=== PATIENT | male | born 1970 | race Caucasian/White ===

== ENCOUNTER 2022-12-14 10:51 | Emergency (ER) | payer OTHER, SELFPAY ==
[2022-12-14 11:28] VITALS: BP 152/87; PULSE 82; RESP 18; TEMP 36.4; O2SAT 96; BMI 33.9
--- NOTE | 2022-12-14 11:30 | ED.GENADULT ---
HPI - General Adult General Chief complaint: Back Pain/Injury <Myron Hopkins - Last Filed: 12/14/22 11:32> Stated complaint: lower back pain <Myron Hopkins - Last Filed: 12/14/22 11:32> Time Seen by Provider: 12/14/22 11:57 <Myron Hopkins - Last Filed: 12/14/22 11:32> Source: patient <ANU Munguia - Last Filed: 12/14/22 13:17> Mode of arrival: ambulatory <ANU Munguia - Last Filed: 12/14/22 13:17> Limitations: no limitations <ANU Munguia - Last Filed: 12/14/22 13:17> History of Present Illness HPI narrative: Patient is a 52 year old assigned male at with a history of lumbar disc disease presenting to the emergency department today with low back pain. Patient states that 2 weeks ago he was working on some cars and is still having low back pain that radiates down his legs. Patient denies any dizziness, lightheadedness, abdominal pain, nausea, vomiting, fever, chills, blurry vision, double vision, loss of vision, chest pain, difficulty breathing, shortness of breath, night sweats, pain with urination, increased urinary frequency, increased urinary urgency, blood in his urine or stool, syncope or a near syncopal episode, recent trauma or falls, bowel incontinence, bladder incontinence, bowel retention, bladder retention, or any other complaints at this time. <ANU Munguia - Last Filed: 12/14/22 13:17> Onset (ago): week(s) (2) <ANU Munguia - Last Filed: 12/14/22 13:17> Location: back <ANU Munguia - Last Filed: 12/14/22 13:17> Radiation: extremity <ANU Munguia - Last Filed: 12/14/22 13:17> Severity: mild <ANU Munguia - Last Filed: 12/14/22 13:17> Severity scale (1-10): 4 <ANU Munguia - Last Filed: 12/14/22 13:17> Relieving factors: none <ANU Munguia - Last Filed: 12/14/22 13:17> Exacerbating factors: none <ANU Munguia - Last Filed: 12/14/22 13:17> Associated symptoms: denies other symptoms <ANU Munguia - Last Filed: 12/14/22 13:17> Treatments prior to arrival: none <ANU Munguia - Last Filed: 12/14/22 13:17> Related Data Home medications: Previous Rx's Medication Instructions Recorded cyclobenzaprine 5 mg tablet 5 mg PO TID PRN low back pain 7 12/14/22 days #21 tabs prednisone 20 mg tablet 20 mg PO DAILY 7 days #7 tabs 12/14/22 <Myron Hopkins - Last Filed: 12/14/22 11:32> Allergies/adverse reactions: Allergies Allergy/AdvReac Type Severity Reaction Status Date / Time No Known Allergies Allergy Verified 12/14/22 11:28 <Myron Hopkins - Last Filed: 12/14/22 11:32> Review of Systems Constitutional: Constitutional: Reports no additional constitutional complaints, Denies chills, Denies fever(s) and Denies night sweats <ANU Munguia - Last Filed: 12/14/22 13:17> Eyes: Eyes: Reports no additional eye complaints, Denies blurry vision, Denies change in vision, Denies diplopia, Denies eye discharge, Denies loss of vision and Denies eye pain <ANU Munguia - Last Filed: 12/14/22 13:17> ENT: Denies dizziness <ANU Munguia - Last Filed: 12/14/22 13:17> Cardiovascular: Cardiovascular: Reports no additional cardiovascular complaints, Denies chest pain, Denies lightheadedness, Denies Loss of Consciousness and Denies dyspnea <ANU Munguia - Last Filed: 12/14/22 13:17> Respiratory: Respiratory: Reports no additional respiratory complaints and Denies dyspnea <ANU Munguia - Last Filed: 12/14/22 13:17> Gastrointestinal: Gastrointestinal: Reports no additional gastrointestinal complaints, Denies abdominal pain, Denies melena, Denies hematochezia, Denies change in bowel habits and Denies change in stool character <ANU Munguia - Last Filed: 12/14/22 13:17> Genitourinary: Genitourinary: Reports no additional male genitourinary complaints, Denies hematuria, Denies oliguria, Denies difficulty urinating, Denies dysuria, Denies urinary frequency, Denies urinary hesitancy, Denies urinary incontinence and Denies urinary urgency <ANU Munguia - Last Filed: 12/14/22 13:17> Musculoskeletal: Musculoskeletal: Reports no additional musculoskeletal complaints, Reports back pain, Denies numbness and Denies tingling <ANU Munguia - Last Filed: 12/14/22 13:17> Neurologic: Denies dizziness, Denies loss of vision, Denies numbness and Denies tingling <ANU Munguia - Last Filed: 12/14/22 13:17> Psychiatric: Psychiatric: Reports no additional psychiatric complaints <ANU Munguia - Last Filed: 12/14/22 13:17> Endocrine: Endocrine: Reports no additional endocrine complaints <ANU Munguia - Last Filed: 12/14/22 13:17> Hematologic/Lymphatic: Hematologic/Lymphatic: Reports no additional hematologic/lymphatic complaints <ANU Munguia - Last Filed: 12/14/22 13:17> Allergic/Immunologic: Allergic/Immunologic: Reports no additional allergic/immunologic complaints <ANU Munguia - Last Filed: 12/14/22 13:17> [facility] Past Medical History Attestation statement: The following information was validated with the patient. <ANU Munguia - Last Filed: 12/14/22 13:17> Source: old records reviewed and nursing notes reviewed <ANU Munguia - Last Filed: 12/14/22 13:17> Social History Social History: Social History Advance Directives: No Advance Directives Information Provided: Yes <Myron Hopkins - Last Filed: 12/14/22 11:32> Physical Exam ED Vital Signs: Vital Signs - 24 hr 12/14/22 11:28 Temperature 97.5 F Pulse Rate 82 Respiratory Rate 18 Blood Pressure 152/87 H Pulse Oximetry 96 Oxygen Delivery Method Room Air BMI result Body Mass Index 33.9 <Myron Oliviery - Last Filed: 12/14/22 11:32> Vital Signs - 24 hr 12/14/22 11:28 Temperature 97.5 F Pulse Rate 82 Respiratory Rate 18 Blood Pressure 152/87 H Pulse Oximetry 96 Oxygen Delivery Method Room Air BMI result Body Mass Index 33.9 <ANU Munguia - Last Filed: 12/14/22 13:17> Const General: cooperative, no acute distress, alert and awake <ANU Munguia - Last Filed: 12/14/22 13:17> Nutritional Appearance: well nourished <ANU Munguia - Last Filed: 12/14/22 13:17> Orientation/consciousness: patient oriented x3 <ANU Munguia - Last Filed: 12/14/22 13:17> Limitations: no limitations <ANU Munguia - Last Filed: 12/14/22 13:17> HENMT Head: Yes normal to inspection and Yes atraumatic <AUN Munguia - Last Filed: 12/14/22 13:17> Ears: hearing grossly normal bilaterally and external ears normal <ANU Munguia - Last Filed: 12/14/22 13:17> General nose exam: Normal external nose present, no nasal discharge noted and no epistaxis <ANU Munguia - Last Filed: 12/14/22 13:17> Face and sinus: Yes normal facial exam, No abrasion and No laceration <ANU Munguia - Last Filed: 12/14/22 13:17> Mouth: Normal oral and palatal mucosa present, no drooling and no muffled voice <ANU Munugia - Last Filed: 12/14/22 13:17> Eyes General: appearance normal, both eyes and all related structures <ANU Munguia - Last Filed: 12/14/22 13:17> Periorbital: periorbital findings normal <ANU Munguia - Last Filed: 12/14/22 13:17> Eyelids: Yes eyelids normal <ANU Munguia - Last Filed: 12/14/22 13:17> Conjunctivae: conjunctivae normal <ANU Munguia - Last Filed: 12/14/22 13:17> Pupils: Equal, round and reactive pupils present <Alejandra Rodriguez [place] - Last Filed: 12/14/22 13:17> EOM: EOMs intact bilaterally <Alejandra Rodriguez [place] - Last Filed: 12/14/22 13:17> Neck Neck: Yes normal visual inspection, Yes full ROM and Yes no lymphadenopathy <Alejandra Rodriguez [place] - Last Filed: 12/14/22 13:17> Chest Chest palpation & inspection: normal inspection of the chest <Alejandra Rodriguez [place] - Last Filed: 12/14/22 13:17> Resp Effort & Inspection: normal respiratory effort and able to speak in complete sentences <Alejandra Rodriguez [place] - Last Filed: 12/14/22 13:17> Auscultation: clear to auscultation bilaterally <Alejandra Rodriguez [place] - Last Filed: 12/14/22 13:17> Cardio Rate: regular rate <Alejandra Rodriguez [place] - Last Filed: 12/14/22 13:17> Rhythm: regular rhythm <Alejandra Rodriguez [place] - Last Filed: 12/14/22 13:17> GI Inspection: Yes normal to inspection <Alejandra Rodriguez [place] - Last Filed: 12/14/22 13:17> Palpation (GI): Soft to palpation, not firm, nontender, no guarding and not rigid <Alejandra Rodriguez [place] - Last Filed: 12/14/22 13:17> General: Yes no CVA tenderness <Alejandra Rodriguez [place] - Last Filed: 12/14/22 13:17> Back/Spine/Pelvis Back: no CVA tenderness <Alejandra Rodriguez [place] - Last Filed: 12/14/22 13:17> Cervical Spine: normal cervical lordosis <Alejandra Rodriguez [place] - Last Filed: 12/14/22 13:17> Thoracic/Lumbar Spine: thoracic and lumbar spine normal to inspection <Alejandra Rodriguez [place] - Last Filed: 12/14/22 13:17> Pelvis: no pain with anterior-posterior compression <Alejandra Rodriguez [place] - Last Filed: 12/14/22 13:17> Neuro General: patient oriented x3 and moves all extremities <Alejandra Solomonjose [place] - Last Filed: 12/14/22 13:17> Cranial nerves: Yes Equal, round and reactive pupils present <Alejandramagdalena SolomonANU garcia - Last Filed: 12/14/22 13:17> Cognition (Neuro): normal cognition <Alejandra SolomonANU garcia - Last Filed: 12/14/22 13:17> Motor exam (neuro): 5/5 motor strength present throughout <Alejandra SolomonANU garcia - Last Filed: 12/14/22 13:17> Sensory Exam: Normal double simultaneous stimulation for sensation <ANU Munguia - Last Filed: 12/14/22 13:17> Coordination: [id number] test normal <Alejandramagdalena SolomonANU garcia - Last Filed: 12/14/22 13:17> Extrem General: Yes normal to inspection, Yes full ROM and Yes capillary refill normal <Alejandramagdalena SolomonANU garcia - Last Filed: 12/14/22 13:17> Psych Appearance: grossly normal <ANU Munguia - Last Filed: 12/14/22 13:17> Mental Status: mental status grossly normal <ANU Munguia - Last Filed: 12/14/22 13:17> Affect: normal affect <ANU Munguia - Last Filed: 12/14/22 13:17> Attitude: cooperative <ANU Munguia - Last Filed: 12/14/22 13:17> Thought process: Normal thought process present <ANU Munguia - Last Filed: 12/14/22 13:17> Thought content: Normal thought content present <ANU Munguia - Last Filed: 12/14/22 13:17> Insight: Good insight present (Psych) <ANU Munguia - Last Filed: 12/14/22 13:17> Course Course Course Narrative: RME- 52 yo male presents for evaluation of lower back pain that started about 2 weeks ago. He believes he injured himself while working on a car. His pain is getting worse and radiating down his right leg. Denies any numbness, tingling, saddle paresthesia, weakness or bladder or bowel incontinence. <Myron Hopkins - Last Filed: 12/14/22 11:32> Medications Administered Discontinued Medications Generic Name Dose Route Start Last Admin Trade Name Freq PRN Reason Stop Dose Admin Cyclobenzaprine HCl 5 mg 12/14/22 11:59 12/14/22 12:14 Cyclobenzaprine Hcl 5 Mg Tablet PO 12/14/22 12:00 5 mg ONCE ONE Administration Ketorolac Tromethamine 15 mg 12/14/22 11:59 12/14/22 12:16 Ketorolac Tromethamine 15 Mg/Ml Vial IM 12/14/22 12:00 15 mg ONCE ONE Administration Methylprednisolone Sodium Succinate 60 mg 12/14/22 11:59 12/14/22 12:17 Methylprednisolone Sod Succ 125 Mg/2 Ml Vial IM 12/14/22 12:00 60 mg ONCE ONE Administration <Myron Hopkins - Last Filed: 12/14/22 11:32> Medications Administered Discontinued Medications Generic Name Dose Route Start Last Admin Trade Name Bindu PRN Reason Stop Dose Admin Cyclobenzaprine HCl 5 mg 12/14/22 11:59 12/14/22 12:14 Cyclobenzaprine Hcl 5 Mg Tablet PO 12/14/22 12:00 5 mg ONCE ONE Administration Ketorolac Tromethamine 15 mg 12/14/22 11:59 12/14/22 12:16 Ketorolac Tromethamine 15 Mg/Ml Vial IM 12/14/22 12:00 15 mg ONCE ONE Administration Methylprednisolone Sodium Succinate 60 mg 12/14/22 11:59 12/14/22 12:17 Methylprednisolone Sod Succ 125 Mg/2 Ml Vial IM 12/14/22 12:00 60 mg ONCE ONE Administration <ANU Munguia - Last Filed: 12/14/22 13:17> Medical Decision Making Medical Decision Making MDM Narrative: Patient is a 52 year old assigned male at with a history of lumbar disc disease presenting to the emergency department today with low back pain. Patient's physical exam was unremarkable. I explained my physical exam findings to the patient. I answered all questions asked by the patient. Patient received IM Solu-Medro, IM Toradol, and PO Flexeril which he stated helped his pain significantly. I stressed the importance of the patient taking his medication as prescribed. I stressed the importance of the patient following up with his primary care provider and a online marketing specialist. I stressed the importance of the patient returning to the emergency department immediately if his symptoms were to worsen or if he were to develop any dizziness, shortness of breath, difficulty breathing, chest pain, blurry vision, loss of vision, nausea, vomiting, abdominal pain, fever, chills, back pain, or any other complaints. Patient verbalized agreement and understanding with this treatment plan and discharge. <ANU Munguia - Last Filed: 12/14/22 13:17> Differential Diagnosis Differential Diagnoses: The differential diagnosis associated with the presentation includes <ANU Munguia - Last Filed: 12/14/22 13:17> low back pain <ANU Munguia - Last Filed: 12/14/22 13:17> Discharge Plan Discharge Clinical Impression: Lumbar radiculopathy <Myron Hopkins - Last Filed: 12/14/22 11:32> Patient Disposition: Home, Self-Care <Myron Hopkins - Last Filed: 12/14/22 11:32> Instructions: Back Pain (ED) <Myron Hopkins - Last Filed: 12/14/22 11:32> Additional Instructions: Follow up with your primary care provider and a online marketing specialist. Return to the emergency department immediately if your symptoms worsen or if you develop any dizziness, shortness of breath, difficulty breathing, chest pain, blurry vision, loss of vision, nausea, vomiting, abdominal pain, fever, chills, back pain, or any other complaints. <Myron Hopkins - Last Filed: 12/14/22 11:32> Prescriptions: New cyclobenzaprine 5 mg tablet 5 mg PO TID PRN (Reason: low back pain) 7 Days Qty: 21 0RF prednisone 20 mg tablet 20 mg PO DAILY 7 Days Qty: 7 0RF <Myron Hopknis - Last Filed: 12/14/22 11:32> Referrals: [facility] [place] [facility] [place]] (Call to establish and follow up with a primary care provider. If you already have a primary care provider, please follow up with them.) [facility] [Provider Group] (Call to establish and follow up with a primary care provider. If you already have a primary care provider, please follow up with them.) [facility] [Provider Group] (Call to establish and follow up with a primary care provider. If you already have a primary care provider, please follow up with them.) [facility] [Provider Group] (Call to establish and follow up with a online marketing specialist. ) <Myron Hopkins - Last Filed: 12/14/22 11:32> Print Language: Wolof <Myron Hopkins - Last Filed: 12/14/22 11:32>
[2022-12-14] MEDS: Cyclobenzaprine HCl 5 MG TABLET PO (12:14)
[2022-12-14] MEDS: Ketorolac Tromethamine 15 MG/ML VIAL IM (12:16)
[2022-12-14] MEDS: methylPREDNISolone Sod Succ 125 MG/2 ML VIAL 60 MG IM (12:17)
== END 2022-12-14 13:36 | disposition home or self-care (01) ==
PROVIDERS: Emergency Provider Emergency Medicine
DX: M54.16 Radiculopathy, lumbar region (principal); M54.50 Low back pain, unspecified
CPT/HCPCS: 96372; 99283; 99284; J1885; J2930

== ENCOUNTER 2025-08-15 13:56 | Emergency (ER) | payer MEDICAID, SELFPAY ==
--- NOTE | ~2025-08-15 | XR_ITS ---
EXAMINATION: XR LUMBOSACRAL SPINE CLINICAL INFORMATION: low back pain COMPARISON: None available. TECHNIQUE: AP and lateral views FINDINGS: Endplate sclerosis and small marginal osteophyte formation throughout the axial skeleton pronounced at L4-5 and L5-S1. Decreased intervertebral disc height at L5-S1. Probably 1 m retrolisthesis at L5-S1. Facet joint hypertrophy at L5-S1. No lytic or blastic lesions. Vascular calcifications, aorta. XR/XR hip LT w PEL1V IMPRESSION: Multilevel spondylosis pronounced at L5-S1 and to a lesser extent L4-5 with likely grade 1 retrolisthesis at L5-S1. EXAMINATION: XR HIP, LEFT CLINICAL INFORMATION: Left hip pain COMPARISON: None available. TECHNIQUE: AP and oblique of the left hip. FINDINGS: No acute cortical disruption or malalignment. No lytic or blastic lesions. Preservation of the joint space. No metallic or radiopaque foreign body. No subcutaneous emphysema. IMPRESSION: No acute fracture or dislocation. Negative x-ray. Electronically signed by: Juan Chowdary MD 08/15/2025 03:09 PM [facility] DAIGLE
--- NOTE | ~2025-08-15 | XR_ITS ---
EXAMINATION: XR LUMBOSACRAL SPINE CLINICAL INFORMATION: low back pain COMPARISON: None available. TECHNIQUE: AP and lateral views FINDINGS: Endplate sclerosis and small marginal osteophyte formation throughout the axial skeleton pronounced at L4-5 and L5-S1. Decreased intervertebral disc height at L5-S1. Probably 1 m retrolisthesis at L5-S1. Facet joint hypertrophy at L5-S1. No lytic or blastic lesions. Vascular calcifications, aorta. XR/XR lumbar spine 2-3V IMPRESSION: Multilevel spondylosis pronounced at L5-S1 and to a lesser extent L4-5 with likely grade 1 retrolisthesis at L5-S1. EXAMINATION: XR HIP, LEFT CLINICAL INFORMATION: Left hip pain COMPARISON: None available. TECHNIQUE: AP and oblique of the left hip. FINDINGS: No acute cortical disruption or malalignment. No lytic or blastic lesions. Preservation of the joint space. No metallic or radiopaque foreign body. No subcutaneous emphysema. IMPRESSION: No acute fracture or dislocation. Negative x-ray. Electronically signed by: Juan Chowdary MD 08/15/2025 03:09 PM [facility] DAIGLE
[2025-08-15 14:15] VITALS: BP 123/59; PULSE 84; RESP 18; TEMP 36.1; O2SAT 95; BMI 36.2
--- NOTE | 2025-08-15 14:25 | ED.GENADULT ---
HPI - General Adult General Chief complaint: Back Pain/Injury Stated complaint: back pain Time Seen by Provider: 08/15/25 15:13 Source: patient Mode of arrival: ambulatory Limitations: no limitations History of Present Illness ED Provider: Girish sullivan HPI narrative: 55 yold male with pmh of chronic back pain presents to the ED for back pain and left hip pain that is worse on movement. Patient denies any urinary/bowel incontinence. Patient denies any genitourinary symptoms. Patient denies any abdominal, fever, chills, IV drug use, immuno compromised diseases, weakness in extremities, nausea, vomitting, or paralysis. Related Data Previous Rx's ?Medication ?Instructions ?Recorded cyclobenzaprine 5 mg tablet 5 mg PO TID PRN low back pain 7 12/14/22 days #21 tabs prednisone 20 mg tablet 20 mg PO DAILY 7 days #7 tabs 12/14/22 ketorolac 10 mg tablet 10 mg PO Q6H PRN pain 5 days #20 08/15/25 tabs prednisone 20 mg tablet 40 mg (2 x 20 mg) PO DAILY 5 days 08/15/25 #10 tabs Allergies Allergy/AdvReac Type Severity Reaction Status Date / Time No Known Allergies Allergy Verified 08/15/25 14:17 Review of Systems Review of Systems: back pain Yes all other systems are reviewed and are [facility] Social History Social History Advance Directives: No Advance Directives Information Provided: Yes Physical Exam ED Vital Signs: Vital Signs - 24 hr 08/15/25 14:15 Temperature 97.0 F Pulse Rate 84 Respiratory Rate 18 Blood Pressure 123/59 L Pulse Oximetry 95 Oxygen Delivery Method Room Air BMI result Body Mass Index 36.2 Const General: cooperative, healthy appearing, comfortable, no acute distress, well developed, alert, awake and Physically active Orientation/consciousness: patient oriented x3 HENMT Head: Yes normal to inspection, Yes No palpable skull fracture present, Yes normocephalic and Yes atraumatic Eyes General: appearance normal, both eyes and all related structures Neck Neck: Yes normal visual inspection, Yes full ROM, Yes no lymphadenopathy, Yes no meningeal signs, Yes trachea midline, Yes supple, No anterior neck swelling and No tender Chest Chest palpation & inspection: normal inspection of the chest and normal palpation of entire chest wall Resp Effort & Inspection: normal respiratory effort and able to speak in complete sentences Auscultation: clear to auscultation bilaterally Cardio Jugular venous distension: no JVD Heart sounds: S1 normal heart sound present and S2 normal heart sound present GI Inspection: Yes normal to inspection Palpation (GI): Soft to palpation, not firm, nontender, no guarding and not rigid General: Yes no CVA tenderness Back/Spine/Pelvis Back: no CVA tenderness and back tenderness (lumbar spine tenderness) Skin General skin exam: no rashes or lesions noted, elasticity normal and turgor normal Full body images:  1. Positive for tenderness on palpation. Negative for ecchymosis, crepitus, deformity or rash Neuro General: patient oriented x3, gait normal, tone normal, moves all extremities, Normal light touch and pain sensation, no meningeal signs, no focal motor deficits, CN's II-XI intact bilaterally and normal sensation to monofilament Extrem General: Yes normal to inspection, Yes full ROM and Yes capillary refill normal Psych Appearance: grossly normal Course Course Course Narrative: RME: 55 year male presents to ED for left-sided hip back pain going down leg that is worse on movement for the past 3 days. Patient denies any trauma nausea vomiting dysuria hematuria or testicular pain. Images ordered Medications Administered Discontinued Medications Generic Name Dose Route Start Last Admin Trade Name Freq PRN Reason Stop Dose Admin Ketorolac Tromethamine 30 mg 08/15/25 15:18 08/15/25 15:48 Ketorolac Tromethamine 30 Mg/Ml Vial IM 08/15/25 15:19 30 mg ONCE ONE Administration Prednisone 40 mg 08/15/25 15:18 08/15/25 15:48 Prednisone 20 Mg Tablet PO 08/15/25 15:19 40 mg ONCE ONE Administration Medical Decision Making Medical Decision Making MDM Narrative: 55-year-old male presents to ED of for back pain since the base without any trauma pain. hip x-ray negative for any fracture or dislocation. Lumbar spine x-ray negative for fracture. Patient given Toradol and prednisone and feels better. Patient explained follow up with spinal surgeon necessary. Patient explained worrisome signs informed return to the ED immediately. Not suspecting osteomyelitits, epidural abscess, cauda equina sydnrome, kdiney stones, pyleoneprhitis, or any other life threatening etiology. Differential Diagnosis Differential Diagnoses: The differential diagnosis associated with the presentation includes (Arthritis, fracture dislocation) Admission/Observation Consideration of admission/observation: Escalation of care including admission/observation considered Independent Interpretation I performed an independent interpretation of an: Plain X-Ray Radiology Impression Discussion of test interpretation with radiology: I have reviewed the radiologist's reading. Independent Historian Clinical information obtained from an independent historian. History obtained from or confirmed by: Other (patient) Prescription Management I considered prescription management with: Pain Medication Discharge Plan Discharge Clinical Impression: Lumbar radiculopathy Patient Disposition: Home, Self-Care Instructions: Lumbar Radiculopathy (ED) Additional Instructions: Recommend follow-up with primary care provider and spine surgeon. Return to the ED for any urinary/bowel incontinence, paralysis numbness of genital area/extremities, fever, chills, nausea, vomiting, flank pain, fever, chills, inability to walk, weakness of extremities, testicular pain, dysuria, hematuria, or any other concerning symptoms. Ordering Physician: Girish Bowen Date of Service: 08/15/25 Procedure(s): XR lumbar spine 2-3V Accession Number(s): [id number] cc: Girish Bowen; Physician,Unknown ~ Reason for Exam: low back pain EXAMINATION: XR LUMBOSACRAL SPINE CLINICAL INFORMATION: low back pain COMPARISON: None available. TECHNIQUE: AP and lateral views FINDINGS: Endplate sclerosis and small marginal osteophyte formation throughout the axial skeleton pronounced at L4-5 and L5-S1. Decreased intervertebral disc height at L5-S1. Probably 1 m retrolisthesis at L5-S1. Facet joint hypertrophy at L5-S1. No lytic or blastic lesions. Vascular calcifications, aorta. XR/XR lumbar spine 2-3V IMPRESSION: Multilevel spondylosis pronounced at L5-S1 and to a lesser extent L4-5 with likely grade 1 retrolisthesis at L5-S1. EXAMINATION: XR HIP, LEFT CLINICAL INFORMATION: Left hip pain COMPARISON: None available. TECHNIQUE: AP and oblique of the left hip. FINDINGS: No acute cortical disruption or malalignment. No lytic or blastic lesions. Preservation of the joint space. No metallic or radiopaque foreign body. No subcutaneous emphysema. IMPRESSION: No acute fracture or dislocation. Negative x-ray. Electronically signed by: Juan Chowdary MD 08/15/2025 03:09 PM [facility] Prescriptions: New prednisone 20 mg tablet 40 mg PO DAILY 5 Days Qty: 10 0RF ketorolac 10 mg tablet 10 mg PO Q6H PRN (Reason: pain) 5 Days Qty: 20 0RF Rx Instructions: maximum total duration of 5 days from all oral, intranasal, or parenteral formulations No Action cyclobenzaprine 5 mg tablet 5 mg PO TID PRN (Reason: low back pain) 7 Days Qty: 21 0RF prednisone 20 mg tablet 20 mg PO DAILY 7 Days Qty: 7 0RF Referrals: David Rodrigez MD [Primary Care Provider, Medical] - 2 days Referral Note: Lumbar radiculopathy Stevo Diehl MD, PhD [Physician, Neuro Spine] - 2 days Referral Note: Lumbar radiculopathy Clinical Impression: Lumbar radiculopathy Stand Alone Forms: Work/School Release Interventions: ED Discharge Assessment Last Done: 08/15/25 16:15 Discharge Date/Time: 08/15/25 16:15 Print Language: [place]an
--- OUTSIDE RECORDS SUMMARY | 2025-08-15 15:30 | XMS_ITS | Clinical Summary ---
Author Organization [employer] Address [address] [place] [address] [address] [place] [address] Care Team Providers Care Wood Cabinetmaker Name Role Phone Unavailable Primary Care Provider Unavailabl e Social History Tobacco Use Types Packs/Day Years Used Date Smoking Tobacco: Never Assessed Sex and Gender Information Value Date Recorded Sex Assigned at Not on file Legal Sex Male 9:22 PM EDT Gender Identity Not on file Sexual Orientation Not on file Plan of Treatment Health Maintenance Due Date Last Done Comments CT Colonography 1970 Depression Screening 1970 FIT DNA/Cologuard 1970 FIT 1970 FOBT 1970 Lipid Panel 1970 SDOH Screening 1970 Sigmoidoscopy 1970 Disability Screening 1970 Alcohol/Substance Use Screening 1982 Tobacco Screening 1982 Hepatitis C Screening 1988 Hepatitis B Vaccines (1 of 3 - 19+ 3-dose series) 1989 Pneumococcal Vaccine: 50+ Years (2 of 2 - PCV) 01/15/2020 01/14/2019 RSV Patients and Patients Aged 60 years or older (1 - Risk 50-74 years 1-dose series) 2020 COVID-19 Vaccine (1 - 2024-2 6 season) 2025 Influenza Vaccine (#1) 2025 DTaP/Tdap/Td Vaccines (2 - T d or Tdap) 01/14/2029 01/14/2019 Colonoscopy 11/22/2033 11/23/2023 Colorectal Cancer Screening 11/22/2033 HIV Screening Completed 01/14/2019 Zoster Vaccines Completed 04/21/2023, 01/13/2023 HIB Vaccines Aged Out No longer eligi ble based on patient's age to complete this topic HPV Vaccines Aged Out No longer eligi ble based on patient's age to complete this topic Hepatitis A Vaccines Aged Out No long er eligible based on patient's age to complete this topic IPV Vaccines Aged Out No longer eligi ble based on patient's age to complete this topic Meningococcal B Vaccine Aged Out No l onger eligible based on patient's age to complete this topic Meningococcal Vaccine Aged Out No [place] eligible based on patient's age to complete this topic RSV under 20 months Aged Out No longe r eligible based on patient's age to complete this topic Rotavirus Vaccines Aged Out No longer eligible based on patient's age to complete this topic
--- OUTSIDE RECORDS SUMMARY | 2025-08-15 15:30 | XMS_ITS | Clinical Summary ---
Author Organization [facility] ity Address [address] [place] [address] Care Team Providers Care Concrete Panel Installer Name Role Phone David Rodrigez MD Primary Care Provider [phone]- [phone] Social History Tobacco Use Types Packs/Day Years Used Date Smoking Tobacco: Never Assessed Sex and Gender Information Value Date Recorded Sex Assigned at Not on file Legal Sex Male 1:00 PM EST Gender Identity Not on file Sexual Orientation Not on file Plan of Treatment Health Maintenance Due Date Last Done Comments Colorectal Cancer Screening: Colonoscopy 1970 DTaP,Tdap,and Td Vaccines (1 - Tdap) 1989 Hepatitis B Vaccines (1 of 3 - 19+ 3-dose series) 1989 Pneumococcal Vaccine: 50+ Ye ars (1 of 1 - PCV) 2020 Zoster Vaccines (1 of 2) 2020 Cholesterol Screening (Lipid Panel) 04/23/2024 HIV Screening 04/23/2024 Hepatitis C Screening 04/23/2024 Lung Cancer Screening (Low Dose CT) 04/23/2024 Social Influencers of Health Screening 04/23/2024 Depression Screening 09/25/2024 COVID-19 Vaccine ( - 2024-2 6 season) 2025 Influenza Vaccine (#1) 2025 RSV Immunization Adult Patie nts (1 - 1-dose 75+ series) 2045 HIB Vaccines Aged Out No longer eligi [...] on patient's age to complete this topic MMR Vaccines Aged Out No longer eligi ble based on patient's age to complete this topic Meningococcal ACWY Vaccine Aged Out N o longer eligible based on patient's age to complete this topic Meningococcal B Vaccine Aged Out No l onger eligible based on patient's age to complete this topic RSV Immunization Patients Un darin 20 months Aged Out No longer eligible b ased on patient's age to complete this topic Varicella Vaccines Aged Out No longer eligible based on patient's age to complete this topic Care Teams Concrete Panel Installer Relationship Specialty Start Date End Date David Rodrigez MD [address] [place] [address] PCP - General 01/16/23
[2025-08-15 16:15] VITALS: BP 139/88; PULSE 63; RESP 18; TEMP 36.1; O2SAT 95
== END 2025-08-15 16:15 | disposition home or self-care (01) ==
PROVIDERS: Emergency Provider Emergency Medicine; PCP Internal Medicine
DX: M54.16 Radiculopathy, lumbar region (principal); M25.552 Pain in left hip; M54.50 Low back pain, unspecified
CPT/HCPCS: 72100; 73502; 96372; 99283; 99284; J1885

== ENCOUNTER → 2025-08-15 14:20 | Outpatient (BNV) | payer MEDICAID, SELFPAY | PROVIDERS: Emergency Provider Emergency Medicine; PCP Internal Medicine; Visit Provider Radiology Diagnostic Radiology | DX: M25.552 Pain in left hip (principal); M47.817 Spondylosis without myelopathy or radiculopathy, lumbosacral region | CPT/HCPCS: 72100; 73502 ==

== ENCOUNTER 2025-09-12 15:51 | Emergency (ER) | payer OTHER, SELFPAY ==
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
[2025-09-12 15:57] VITALS: BP 154/84; PULSE 77; RESP 18; TEMP 36.7; O2SAT 95; BMI 33.5
--- OUTSIDE RECORDS SUMMARY | 2025-09-12 19:39 | XMS_ITS | Clinical Summary ---
Author Organization [employer] Address [address] [place] [address] [address] [place] [address] Care Team Providers Care Mobile Application Architect Name Role Phone Unavailable Primary Care Provider [...]
--- OUTSIDE RECORDS SUMMARY | 2025-09-12 19:39 | XMS_ITS | Clinical Summary ---
Author Organization [facility] ity Address [address] [place] [address] Care Team Providers Care Set Key Driver Name Role Phone David Rodrigez MD Primary Care Provider +1- [phone] Social History Tobacco Use Types Packs/Day Years [...] age to complete this topic Care Teams Set Key Driver Relationship Specialty Start Date End Date David Rodrigez MD [address] [place] [address] PCP - General 01/16/23
[2025-09-12 19:57] VITALS: BP 133/80; PULSE 56; RESP 16; TEMP 36.7; O2SAT 97
== END 2025-09-12 20:00 | disposition home or self-care (01) ==
PROVIDERS: Emergency Provider Emergency Medicine; PCP Internal Medicine
DX: R51.9 Headache, unspecified (principal); M79.18 Myalgia, other site; V43.52XA Car driver injured in collision with other type car in traffic accident, initial encounter; Y93.89 Activity, other specified; Y92.488 Other paved roadways as the place of occurrence of the external cause; Y99.8 Other external cause status
CPT/HCPCS: 70450; 72072; 72100; 72125; 99282; 99284

== ENCOUNTER → 2025-09-12 16:00 | Outpatient (BNV) | payer OTHER, SELFPAY | PROVIDERS: PCP Internal Medicine; Visit Provider Radiology Diagnostic Radiology | DX: M54.2 Cervicalgia (principal); R51.9 Headache, unspecified; J34.89 Other specified disorders of nose and nasal sinuses; M51.360 Other intervertebral disc degeneration, lumbar region with discogenic back pain only; M41.86 Other forms of scoliosis, lumbar region; V89.2XXA Person injured in unspecified motor-vehicle accident, traffic, initial encounter | CPT/HCPCS: 70450; 72072; 72100; 72125 ==